=== PATIENT | female | born 1945 | race Caucasian/White ===

== ENCOUNTER 2017-07-30 11:10 | Inpatient (IN) | payer MEDICARE, MEDICAID ==
[~2017-07-30] VITALS: Ht 154.9 cm; Wt 50.0 kg
[~2017-07-30 11:10] MED LIST: AMIT-106 PO; ASPI-611 PO; ATEN-55 PO; BUDE10.22 INH; FLUT16SP20 NS; LEVA15HF4 INH; LISI-600 PO; LOVA20TA2 PO; OMEP-50 PO; PARO20TA6 PO; TRAZ-143 PO
[2017-07-30] MEDS ORDERED: normal saline 1000ML IV soln IV ONE (11:30)
[2017-07-30 12:12] LABS: BASOPHILS # (AUTO) 0.1 X10'3 (0-0.2); BASOPHILS % (AUTO) 0.4 % (0-1); EOSINOPHILS # (AUTO) 0.2 X10'3 (0-0.9); EOSINOPHILS % (AUTO) 1.3 % (0-6); HEMATOCRIT 29.5 % (35.0-45.0); HEMOGLOBIN 9.7 g/dl (12.0-16.0); LYMPHOCYTES # (AUTO) 1.4 X10'3 (1.1-4.8); LYMPHOCYTES % (AUTO) 7.9 % (21-51); MEAN CORPUSCULAR HGB CONC 32.8 % (33.0-36.5); MEAN CORPUSCULAR VOLUME 88.5 FL (78-98); MEAN PLATELET VOLUME 6.7 FL (7.4-10.4); MONOCYTES # (AUTO) 2.2 X10'3 (0-0.9); MONOCYTES % (AUTO) 12.5 % (2-12); NEUTROPHILS % (AUTO) 77.9 % (42-75); PLATELET COUNT 437 X10'3 (140-440); RED BLOOD COUNT 3.34 X10'6 (4.20-5.60); RED CELL DISTRIBUTION WIDTH 14.4 % (11.5-14.5)
[2017-07-30 12:36] LABS: ALANINE AMINOTRANSFERASE 11 U/L (12-78); ALBUMIN 2.2 G/DL (3.4-5.0); ALBUMIN/GLOBULIN RATIO 0.6 (1.1-1.5); ALKALINE PHOSPHATASE 88 IU/L (46-116); ANION GAP 13 (8-16); ASPARTATE AMINO TRANSFERASE 14 U/L (10-37); BILIRUBIN,TOTAL 0.5 MG/DL (0.1-1.0); BLOOD UREA NITROGEN 28 MG/DL (7-18); BUN/CREATININE RATIO 9.4 (6.6-38.0); CALCIUM 7.8 MG/DL (8.5-10.1); CHLORIDE 89 MMOL/L (99-107); CREATININE 2.97 MG/DL (0.40-0.90); GLUCOSE 87 MG/DL (70-104); POTASSIUM 3.6 MMOL/L (3.5-5.1); SODIUM 125 MMOL/L (135-145); TOTAL CARBON DIOXIDE 22.8 MMOL/L (24-32); TOTAL PROTEIN 6.1 G/DL (6.4-8.2); eGFR 15 ML/MIN
[2017-07-30 12:45] LABS: PLATELET ESTIMATE NORMAL; TOTAL CELLS COUNTED 100
[2017-07-30] MEDS ORDERED: vancomycin 250MG/10ML UD oral solution 10ML BOTTLE PO SCH (12:55)
[2017-07-30 13:16] LABS: CLARITY,URINE SLIGHTLY CLOUDY (Clear); COLOR,URINE AMBER (Yellow); GLUCOSE, URINE 100 mg/dl (Neg); KETONES,URINE NEGATIVE (Neg); LEUKOCYTE ESTERASE ,URINE NEGATIVE (Neg); NITRITES, URINE POSITIVE (Neg); OCCULT BLOOD,URINE NEGATIVE (Neg); PROTEIN,URINE 30 mg/dl (Neg)
[2017-07-30 13:20] LABS: UA COLLECTION TYPE STRAIGHT CATH
[2017-07-30 13:29] LABS: WBC,URINE 0-4 /HPF (0-4)
[2017-07-30] MEDS ORDERED: vancomcyin 250mg capsules PO SCH (13:29)
[2017-07-30 13:30] LABS: BACTERIA,URINE NONE SEEN /HPF (Neg); RBC,URINE NONE SEEN /HPF (0-2); SQUAMOUS EPITHELIAL CELL,UR FEW /LPF (FEW)
[2017-07-30 13:32] LABS: AMORPHOUS URATES 2+
[2017-07-30] MEDS ORDERED: acetaminophen 325mg tablet PO PRN (13:35)
[2017-07-30] MEDS ORDERED: magnesium 4gm in 100ml NS 100 ML IV PRN (13:35)
[2017-07-30] MEDS ORDERED: mag hydrox/Alum hydrox/simeth 30ml oral suspension PO PRN (13:35)
[2017-07-30] MEDS ORDERED: potassium Cl 20 mEq SR tablet PO PRN ×2 (13:35)
[2017-07-30] MEDS ORDERED: magnesium 2GM in 50ml NS 50 ML IV PRN (13:35)
[2017-07-30] MEDS ORDERED: potassium Cl 40MEQ/NS 500ml 500 ML IV PRN ×2 (13:35)
[2017-07-30] MEDS ORDERED: albuterol 2.5 MG/3 ML nebule NEB PRN (14:00)
[2017-07-30] MEDS: vancomcyin 250mg capsules PO SCH ×2 (14:31→21:12)
[2017-07-30] MEDS: potassium Cl 20mEq in NS 1,000 ML IV SCH ×2 (15:24→23:35)
[2017-07-30 15:25] LABS: C DIFF ANTIGEN POSITIVE (NEGATIVE); C DIFF SPECIMEN=DIARRHEA? ACCEPTABLE; C DIFFICILE TOXINS A&B POSITIVE (Neg)
[2017-07-30 15:53] VITALS: BP 111/64
[2017-07-30] MEDS ORDERED: ONDA4TAB11 (16:58)
[2017-07-30 17:49] LABS: ALBUMIN 1.9 G/DL (3.4-5.0); ANION GAP 14 (8-16); BLOOD UREA NITROGEN 28 MG/DL (7-18); BUN/CREATININE RATIO 11.6 (6.6-38.0); CALCIUM 7.2 MG/DL (8.5-10.1); CHLORIDE 94 MMOL/L (99-107); CREATININE 2.41 MG/DL (0.40-0.90); GLUCOSE 70 MG/DL (70-104); POTASSIUM 3.5 MMOL/L (3.5-5.1); SODIUM 130 MMOL/L (135-145); TOTAL CARBON DIOXIDE 21.7 MMOL/L (24-32); eGFR 20 ML/MIN
[2017-07-30 18:00] VITALS: BP 94/47
[2017-07-30 20:43] VITALS: BP_SYST 100; BP_SYST 101; BP_SYST 90; BP_DIAS 44; BP_DIAS 59; BP_DIAS 62
[2017-07-30] MEDS: traZODone 50mg tablet PO SCH (21:12)
[2017-07-30] MEDS: heparin, porcine 5000 units/ml vial SQ SCH (21:13)
[2017-07-30 22:00] VITALS: BP 100/47
[2017-07-31] MEDS: vancomcyin 250mg capsules PO SCH ×4 (01:39→19:59)
[2017-07-31 05:50] LABS: BASOPHILS % (AUTO) 0 % (0-1); EOSINOPHILS # (AUTO) 0.4 X10'3 (0-0.9); EOSINOPHILS % (AUTO) 2.1 % (0-6); HEMATOCRIT 24.6 % (35.0-45.0); HEMOGLOBIN 8.1 g/dl (12.0-16.0); LYMPHOCYTES # (AUTO) 1.3 X10'3 (1.1-4.8); LYMPHOCYTES % (AUTO) 7.3 % (21-51); MEAN CORPUSCULAR HEMOGLOBIN 28.9 PG (27.0-31.0); MEAN CORPUSCULAR VOLUME 87.6 FL (78-98); MEAN PLATELET VOLUME 6.7 FL (7.4-10.4); MONOCYTES # (AUTO) 1.6 X10'3 (0-0.9); NEUTROPHILS # (AUTO) 14.8 X10'3 (1.8-7.7); NEUTROPHILS % (AUTO) 81.6 % (42-75); PLATELET COUNT 465 X10'3 (140-440); RED BLOOD COUNT 2.81 X10'6 (4.20-5.60); RED CELL DISTRIBUTION WIDTH 14.5 % (11.5-14.5); WHITE BLOOD COUNT 18.1 X10'3 (4.5-11.0)
[2017-07-31 06:16] LABS: ALBUMIN 1.7 G/DL (3.4-5.0); ANION GAP 12 (8-16); BLOOD UREA NITROGEN 26 MG/DL (7-18); BUN/CREATININE RATIO 15.3 (6.6-38.0); CHLORIDE 99 MMOL/L (99-107); GLUCOSE 71 MG/DL (70-104); MAGNESIUM 1.2 MG/DL (1.5-2.4); POTASSIUM 4.2 MMOL/L (3.5-5.1); SODIUM 132 MMOL/L (135-145); TOTAL CARBON DIOXIDE 20.8 MMOL/L (24-32); eGFR 29 ML/MIN
[2017-07-31 06:54] VITALS: BP 94/54
[2017-07-31] MEDS: fluticasone nasal spray 16GM bottle NS SCH (07:49)
[2017-07-31] MEDS: amitriptyline 25mg tablet PO SCH (07:50)
[2017-07-31] MEDS: PARoxetine 20mg tablet PO SCH (07:50)
[2017-07-31] MEDS: atorvastatin 10mg tablet PO SCH (07:51)
[2017-07-31] MEDS: aspirin 81mg tab.chew PO SCH (07:51)
[2017-07-31] MEDS: pantoprazole 40mg Tablet.DR PO SCH (07:51)
[2017-07-31] MEDS: heparin, porcine 5000 units/ml vial SQ SCH ×2 (07:52→19:59)
[2017-07-31 08:00] VITALS: BP_SYST 106; BP_SYST 116; BP_SYST 123; BP_DIAS 65; BP_DIAS 66; BP_DIAS 70
[2017-07-31] MEDS: K and/or MAG REPLACEMENT MC SCH (08:00)
[2017-07-31 10:00] VITALS: BP 103/57
[2017-07-31 10:18] LABS: PLATELET ESTIMATE NORMAL; TOTAL CELLS COUNTED 100
[2017-07-31 10:19] LABS: TOXIC GRANULATION 2+
[2017-07-31 10:21] LABS: SCHISTOCYTES FEW
[2017-07-31 10:23] LABS: BURR CELLS 1+
[2017-07-31] MEDS: potassium Cl 20mEq in NS 1,000 ML IV SCH ×2 (13:00→20:58)
[2017-07-31 18:00] VITALS: BP 110/70
[2017-07-31 20:45] VITALS: BP_SYST 110; BP_SYST 112; BP_SYST 121; BP_DIAS 61; BP_DIAS 64; BP_DIAS 69
[2017-07-31] MEDS: traZODone 50mg tablet PO SCH (20:58)
[2017-07-31 22:00] VITALS: BP 105/62
[2017-08-01] VITALS (7 sets, daily range): BP systolic 112–142; BP diastolic 67–84
[2017-08-01] MEDS: vancomcyin 250mg capsules PO SCH ×4 (01:53→21:45)
[2017-08-01] MEDS: albuterol 2.5 MG/3 ML nebule NEB SCH ×2 (03:00→07:48)
[2017-08-01] MEDS: BUDESONIDE 0.25 MG/2 ML AMPUL.NEB IH SCH ×3 (03:01→20:06)
[2017-08-01] MEDS: potassium Cl 20mEq in NS 1,000 ML IV SCH (05:05)
[2017-08-01 06:03] LABS: BASOPHILS % (AUTO) 0.3 % (0-1); EOSINOPHILS % (AUTO) 2.8 % (0-6); HEMATOCRIT 24.7 % (35.0-45.0); HEMOGLOBIN 8.2 g/dl (12.0-16.0); LYMPHOCYTES % (AUTO) 12.6 % (21-51); MEAN CORPUSCULAR HEMOGLOBIN 28.8 PG (27.0-31.0); MEAN CORPUSCULAR HGB CONC 33.3 % (33.0-36.5); MEAN CORPUSCULAR VOLUME 86.5 FL (78-98); MEAN PLATELET VOLUME 6.3 FL (7.4-10.4); MONOCYTES % (AUTO) 8.9 % (2-12); NEUTROPHILS % (AUTO) 75.4 % (42-75); PLATELET COUNT 498 X10'3 (140-440); RED BLOOD COUNT 2.85 X10'6 (4.20-5.60); RED CELL DISTRIBUTION WIDTH 14.6 % (11.5-14.5); WHITE BLOOD COUNT 12.6 X10'3 (4.5-11.0)
[2017-08-01 06:04] LABS: EOSINOPHILS # (AUTO) 0.3 X10'3 (0-0.9); LYMPHOCYTES # (AUTO) 1.6 X10'3 (1.1-4.8); MONOCYTES # (AUTO) 1.1 X10'3 (0-0.9); NEUTROPHILS # (AUTO) 9.5 X10'3 (1.8-7.7)
[2017-08-01 06:24] LABS: ALBUMIN 1.7 G/DL (3.4-5.0); ANION GAP 8 (8-16); BLOOD UREA NITROGEN 12 MG/DL (7-18); BUN/CREATININE RATIO 12.4 (6.6-38.0); CALCIUM 7.4 MG/DL (8.5-10.1); CHLORIDE 105 MMOL/L (99-107); CREATININE 0.97 MG/DL (0.40-0.90); GLUCOSE 90 MG/DL (70-104); MAGNESIUM 1.2 MG/DL (1.5-2.4); POTASSIUM 4.6 MMOL/L (3.5-5.1); SODIUM 135 MMOL/L (135-145); TOTAL CARBON DIOXIDE 22.4 MMOL/L (24-32); eGFR 56 ML/MIN
[2017-08-01] MEDS: K and/or MAG REPLACEMENT MC SCH (08:00)
[2017-08-01] MEDS: atorvastatin 10mg tablet PO SCH (08:51)
[2017-08-01] MEDS: magnesium Cl slow-release 64mg tablet PO PRN ×2 (08:51→21:45)
[2017-08-01] MEDS: pantoprazole 40mg Tablet.DR PO SCH (08:51)
[2017-08-01] MEDS: aspirin 81mg tab.chew PO SCH (08:52)
[2017-08-01] MEDS: PARoxetine 20mg tablet PO SCH (08:52)
[2017-08-01] MEDS: amitriptyline 25mg tablet PO SCH (08:52)
[2017-08-01] MEDS: fluticasone nasal spray 16GM bottle NS SCH (09:10)
[2017-08-01] MEDS: heparin, porcine 5000 units/ml vial SQ SCH ×2 (09:13→21:45)
[2017-08-01] MEDS: ondansetron/PF 4mg/2ml inj IV PRN (09:20)
[2017-08-01] MEDS ORDERED: famotidine 10mg tablet PO SCH (10:55)
[2017-08-01] MEDS: albuterol 2.5 MG/3 ML nebule NEB PRN (11:33)
[2017-08-01] MEDS: normal saline 1000ml 1,000 ML IV SCH (11:45)
[2017-08-01] MEDS: LACTOSE-FREE FOOD 237ML (BOOST) PO SCH ×2 (13:00→18:00)
[2017-08-01] MEDS: mag hydrox/Alum hydrox/simeth 30ml oral suspension PO SCH ×2 (15:15→21:45)
[2017-08-01] MEDS: traZODone 50mg tablet PO SCH (21:45)
[2017-08-01] MEDS: famotidine 20mg tablet PO SCH (21:45)
[2017-08-02] MEDS: normal saline 1000ml 1,000 ML IV SCH ×2 (00:20→13:26)
[2017-08-02] MEDS: vancomcyin 250mg capsules PO SCH ×4 (02:07→20:59)
[2017-08-02 06:00] VITALS: BP 123/80
[2017-08-02 06:16] LABS: BASOPHILS % (AUTO) 0.5 % (0-1); EOSINOPHILS # (AUTO) 0.3 X10'3 (0-0.9); EOSINOPHILS % (AUTO) 3.1 % (0-6); HEMATOCRIT 26.7 % (35.0-45.0); HEMOGLOBIN 8.7 g/dl (12.0-16.0); LYMPHOCYTES # (AUTO) 1.9 X10'3 (1.1-4.8); MEAN CORPUSCULAR HEMOGLOBIN 29.2 PG (27.0-31.0); MEAN CORPUSCULAR HGB CONC 32.8 % (33.0-36.5); MEAN CORPUSCULAR VOLUME 89.1 FL (78-98); MEAN PLATELET VOLUME 6.8 FL (7.4-10.4); MONOCYTES # (AUTO) 0.8 X10'3 (0-0.9); MONOCYTES % (AUTO) 10.2 % (2-12); NEUTROPHILS # (AUTO) 5.1 X10'3 (1.8-7.7); NEUTROPHILS % (AUTO) 62.2 % (42-75); PLATELET COUNT 571 X10'3 (140-440); RED BLOOD COUNT 2.99 X10'6 (4.20-5.60); RED CELL DISTRIBUTION WIDTH 13.8 % (11.5-14.5); WHITE BLOOD COUNT 8.1 X10'3 (4.5-11.0)
[2017-08-02 06:17] LABS: ALBUMIN 1.8 G/DL (3.4-5.0); ANION GAP 6 (8-16); BLOOD UREA NITROGEN 5 MG/DL (7-18); BUN/CREATININE RATIO 5.4 (6.6-38.0); CALCIUM 7.7 MG/DL (8.5-10.1); CHLORIDE 106 MMOL/L (99-107); CREATININE 0.93 MG/DL (0.40-0.90); GLUCOSE 76 MG/DL (70-104); MAGNESIUM 1.3 MG/DL (1.5-2.4); POTASSIUM 4.2 MMOL/L (3.5-5.1); SODIUM 137 MMOL/L (135-145); TOTAL CARBON DIOXIDE 24.7 MMOL/L (24-32); eGFR 59 ML/MIN
[2017-08-02] MEDS: HYDROcodone/acetaminophen 5mg/325mg tablet PO PRN ×3 (06:42→20:58)
[2017-08-02 08:00] VITALS: BP_SYST 104; BP_SYST 121; BP_SYST 122; BP_DIAS 69; BP_DIAS 74; BP_DIAS 82
[2017-08-02] MEDS: fluticasone nasal spray 16GM bottle NS SCH (08:06)
[2017-08-02] MEDS: magnesium Cl slow-release 64mg tablet PO PRN ×2 (08:07→20:59)
[2017-08-02] MEDS: heparin, porcine 5000 units/ml vial SQ SCH ×2 (08:07→20:58)
[2017-08-02] MEDS: aspirin 81mg tab.chew PO SCH (08:07)
[2017-08-02] MEDS: atorvastatin 10mg tablet PO SCH (08:08)
[2017-08-02] MEDS: famotidine 20mg tablet PO SCH ×2 (08:08→20:59)
[2017-08-02] MEDS: PARoxetine 20mg tablet PO SCH (08:08)
[2017-08-02] MEDS: LACTOSE-FREE FOOD 237ML (BOOST) PO SCH ×3 (08:08→21:00)
[2017-08-02] MEDS: mag hydrox/Alum hydrox/simeth 30ml oral suspension PO SCH ×3 (08:08→20:57)
[2017-08-02] MEDS: amitriptyline 25mg tablet PO SCH (08:08)
[2017-08-02] MEDS: K and/or MAG REPLACEMENT MC SCH (08:15)
[2017-08-02] MEDS: albuterol 2.5 MG/3 ML nebule NEB PRN (09:31)
[2017-08-02] MEDS: BUDESONIDE 0.25 MG/2 ML AMPUL.NEB IH SCH ×2 (09:32→21:24)
[2017-08-02 10:00] VITALS: BP 113/80
[2017-08-02] MEDS: chloestyramine/aspartame 4gm packet PO SCH ×3 (13:00→21:00)
[2017-08-02 18:00] VITALS: BP 112/62
[2017-08-02 20:00] VITALS: BP_SYST 123; BP_SYST 129; BP_DIAS 73; BP_DIAS 76; BP_DIAS 83
[2017-08-02] MEDS ORDERED: potassium Cl 20 mEq SR tablet PO PRN ×2 (20:45)
[2017-08-02] MEDS ORDERED: magnesium 4gm in 100ml NS 100 ML IV PRN (20:45)
[2017-08-02] MEDS ORDERED: magnesium/D5W IVPB 100 ML IV PRN (20:45)
[2017-08-02] MEDS ORDERED: potassium Cl 40MEQ/NS 500ml 500 ML IV PRN ×2 (20:45)
[2017-08-02] MEDS: lactobacillus rhamnosus 10,000 MMU CELLS/CAPSULE PO SCH (20:59)
[2017-08-02] MEDS: traZODone 50mg tablet PO SCH (21:00)
[2017-08-02 22:00] VITALS: BP 129/76
[2017-08-03] MEDS: vancomcyin 250mg capsules PO SCH ×4 (02:30→22:23)
[2017-08-03] MEDS: normal saline 1000ml 1,000 ML IV SCH ×2 (02:56→16:08)
[2017-08-03] MEDS: HYDROcodone/acetaminophen 5mg/325mg tablet PO PRN ×3 (03:05→22:24)
[2017-08-03 06:00] VITALS: BP 142/71
[2017-08-03 06:23] LABS: ANION GAP 6 (8-16); BLOOD UREA NITROGEN 7 MG/DL (7-18); CHLORIDE 104 MMOL/L (99-107); CREATININE 0.88 MG/DL (0.40-0.90); GLUCOSE 73 MG/DL (70-104); MAGNESIUM 1.2 MG/DL (1.5-2.4); POTASSIUM 4.4 MMOL/L (3.5-5.1); SODIUM 137 MMOL/L (135-145); TOTAL CARBON DIOXIDE 27.2 MMOL/L (24-32); eGFR 63 ML/MIN
[2017-08-03 08:00] VITALS: BP_SYST 135; BP_SYST 139; BP_SYST 141; BP_DIAS 72; BP_DIAS 78; BP_DIAS 79
[2017-08-03] MEDS: chloestyramine/aspartame 4gm packet PO SCH ×3 (08:00→21:00)
[2017-08-03] MEDS: K and/or MAG REPLACEMENT MC SCH (08:00)
[2017-08-03] MEDS: BUDESONIDE 0.25 MG/2 ML AMPUL.NEB IH SCH ×2 (08:00→20:00)
[2017-08-03] MEDS: magnesium Cl slow-release 64mg tablet PO PRN ×2 (08:58→22:22)
[2017-08-03] MEDS: fluticasone nasal spray 16GM bottle NS SCH (08:59)
[2017-08-03] MEDS: LACTOSE-FREE FOOD 237ML (BOOST) PO SCH ×3 (08:59→18:00)
[2017-08-03] MEDS: aspirin 81mg tab.chew PO SCH (08:59)
[2017-08-03] MEDS: lactobacillus rhamnosus 10,000 MMU CELLS/CAPSULE PO SCH ×2 (09:00→22:23)
[2017-08-03] MEDS: atorvastatin 10mg tablet PO SCH (09:00)
[2017-08-03] MEDS: amitriptyline 25mg tablet PO SCH (09:00)
[2017-08-03] MEDS: famotidine 20mg tablet PO SCH ×2 (09:01→22:22)
[2017-08-03] MEDS: PARoxetine 20mg tablet PO SCH (09:01)
[2017-08-03] MEDS: mag hydrox/Alum hydrox/simeth 30ml oral suspension PO SCH ×3 (09:01→22:22)
[2017-08-03] MEDS: heparin, porcine 5000 units/ml vial SQ SCH ×2 (09:04→22:22)
[2017-08-03 10:00] VITALS: BP 141/79
[2017-08-03] MEDS: albuterol 2.5 MG/3 ML nebule NEB PRN (12:20)
[2017-08-03 18:00] VITALS: BP 132/69
[2017-08-03] MEDS: ondansetron/PF 4mg/2ml inj IV PRN (19:39)
[2017-08-03 20:00] VITALS: BP_SYST 117; BP_SYST 123; BP_SYST 131; BP_DIAS 73; BP_DIAS 75; BP_DIAS 77
[2017-08-03 22:00] VITALS: BP 139/91
[2017-08-03] MEDS: traZODone 50mg tablet PO SCH (22:23)
[2017-08-04] VITALS (7 sets, daily range): BP systolic 113–140; BP diastolic 69–87
[2017-08-04] MEDS: vancomcyin 250mg capsules PO SCH ×4 (02:02→20:12)
[2017-08-04] MEDS: normal saline 1000ml 1,000 ML IV SCH ×2 (05:33→20:13)
[2017-08-04 05:37] LABS: ALBUMIN 1.9 G/DL (3.4-5.0); ANION GAP 6 (8-16); BLOOD UREA NITROGEN 5 MG/DL (7-18); BUN/CREATININE RATIO 6.2 (6.6-38.0); CALCIUM 7.7 MG/DL (8.5-10.1); CHLORIDE 103 MMOL/L (99-107); CREATININE 0.81 MG/DL (0.40-0.90); GLUCOSE 77 MG/DL (70-104); MAGNESIUM 1.6 MG/DL (1.5-2.4); POTASSIUM 4.2 MMOL/L (3.5-5.1); SODIUM 138 MMOL/L (135-145); TOTAL CARBON DIOXIDE 28.8 MMOL/L (24-32); eGFR 69 ML/MIN
[2017-08-04] MEDS: HYDROcodone/acetaminophen 5mg/325mg tablet PO PRN ×2 (05:38→19:18)
[2017-08-04] MEDS: K and/or MAG REPLACEMENT MC SCH (07:29)
[2017-08-04] MEDS: amitriptyline 25mg tablet PO SCH (07:43)
[2017-08-04] MEDS: lactobacillus rhamnosus 10,000 MMU CELLS/CAPSULE PO SCH ×2 (07:44→20:12)
[2017-08-04] MEDS: PARoxetine 20mg tablet PO SCH (07:44)
[2017-08-04] MEDS: aspirin 81mg tab.chew PO SCH (07:45)
[2017-08-04] MEDS: atorvastatin 10mg tablet PO SCH (07:45)
[2017-08-04] MEDS: famotidine 20mg tablet PO SCH ×2 (07:45→20:13)
[2017-08-04] MEDS: mag hydrox/Alum hydrox/simeth 30ml oral suspension PO SCH ×3 (07:46→20:12)
[2017-08-04] MEDS: fluticasone nasal spray 16GM bottle NS SCH (07:47)
[2017-08-04] MEDS: chloestyramine/aspartame 4gm packet PO SCH ×3 (07:47→19:22)
[2017-08-04] MEDS: heparin, porcine 5000 units/ml vial SQ SCH ×2 (07:48→20:13)
[2017-08-04] MEDS: LACTOSE-FREE FOOD 237ML (BOOST) PO SCH ×3 (07:49→18:00)
[2017-08-04] MEDS: BUDESONIDE 0.25 MG/2 ML AMPUL.NEB IH SCH ×2 (09:08→21:20)
[2017-08-04] MEDS: ondansetron/PF 4mg/2ml inj IV PRN (15:31)
[2017-08-04] MEDS: traZODone 50mg tablet PO SCH (20:12)
[2017-08-05] MEDS: vancomcyin 250mg capsules PO SCH ×4 (02:29→20:29)
[2017-08-05 05:00] VITALS: BP 139/78
[2017-08-05] MEDS: HYDROcodone/acetaminophen 5mg/325mg tablet PO PRN ×2 (05:14→20:30)
[2017-08-05 05:50] LABS: BASOPHILS # (AUTO) 0.1 X10'3 (0-0.2); BASOPHILS % (AUTO) 1.3 % (0-1); EOSINOPHILS # (AUTO) 0.3 X10'3 (0-0.9); EOSINOPHILS % (AUTO) 4.3 % (0-6); HEMATOCRIT 24.7 % (35.0-45.0); LYMPHOCYTES # (AUTO) 1.9 X10'3 (1.1-4.8); LYMPHOCYTES % (AUTO) 26.1 % (21-51); MEAN CORPUSCULAR HEMOGLOBIN 28.7 PG (27.0-31.0); MEAN CORPUSCULAR HGB CONC 32.5 % (33.0-36.5); MEAN CORPUSCULAR VOLUME 88.5 FL (78-98); MEAN PLATELET VOLUME 6.4 FL (7.4-10.4); MONOCYTES # (AUTO) 0.7 X10'3 (0-0.9); MONOCYTES % (AUTO) 9.2 % (2-12); NEUTROPHILS # (AUTO) 4.3 X10'3 (1.8-7.7); NEUTROPHILS % (AUTO) 59.1 % (42-75); PLATELET COUNT 559 X10'3 (140-440); WHITE BLOOD COUNT 7.3 X10'3 (4.5-11.0)
[2017-08-05 06:09] LABS: ALANINE AMINOTRANSFERASE 7 U/L (12-78); ALBUMIN 1.7 G/DL (3.4-5.0); ALBUMIN/GLOBULIN RATIO 0.5 (1.1-1.5); ALKALINE PHOSPHATASE 69 IU/L (46-116); ANION GAP 4 (8-16); ASPARTATE AMINO TRANSFERASE 9 U/L (10-37); BILIRUBIN,TOTAL 0.1 MG/DL (0.1-1.0); BLOOD UREA NITROGEN 6 MG/DL (7-18); BUN/CREATININE RATIO 8.3 (6.6-38.0); CALCIUM 7.9 MG/DL (8.5-10.1); CHLORIDE 103 MMOL/L (99-107); CREATININE 0.72 MG/DL (0.40-0.90); GLUCOSE 78 MG/DL (70-104); MAGNESIUM 1.3 MG/DL (1.5-2.4); POTASSIUM 4.1 MMOL/L (3.5-5.1); SODIUM 137 MMOL/L (135-145); TOTAL CARBON DIOXIDE 30.2 MMOL/L (24-32); TOTAL PROTEIN 4.9 G/DL (6.4-8.2); eGFR 79 ML/MIN
[2017-08-05] MEDS: K and/or MAG REPLACEMENT MC SCH (06:50)
[2017-08-05] MEDS: BUDESONIDE 0.25 MG/2 ML AMPUL.NEB IH SCH ×2 (07:55→20:00)
[2017-08-05 08:00] VITALS: BP_SYST 128; BP_SYST 133; BP_DIAS 72; BP_DIAS 74; BP_DIAS 81
[2017-08-05] MEDS: LACTOSE-FREE FOOD 237ML (BOOST) PO SCH ×3 (08:00→18:00)
[2017-08-05] MEDS: mag hydrox/Alum hydrox/simeth 30ml oral suspension PO SCH ×3 (09:12→20:28)
[2017-08-05] MEDS: lactobacillus rhamnosus 10,000 MMU CELLS/CAPSULE PO SCH ×2 (09:13→20:30)
[2017-08-05] MEDS: aspirin 81mg tab.chew PO SCH (09:14)
[2017-08-05] MEDS: famotidine 20mg tablet PO SCH (09:14)
[2017-08-05] MEDS: atorvastatin 10mg tablet PO SCH (09:14)
[2017-08-05] MEDS: PARoxetine 20mg tablet PO SCH (09:14)
[2017-08-05] MEDS: heparin, porcine 5000 units/ml vial SQ SCH ×2 (09:15→20:31)
[2017-08-05] MEDS: amitriptyline 25mg tablet PO SCH (09:20)
[2017-08-05] MEDS: chloestyramine/aspartame 4gm packet PO SCH ×3 (09:20→20:32)
[2017-08-05] MEDS: normal saline 1000ml 1,000 ML IV SCH ×2 (09:20→20:35)
[2017-08-05] MEDS: fluticasone nasal spray 16GM bottle NS SCH (09:20)
[2017-08-05 10:00] VITALS: BP 128/74
[2017-08-05] MEDS: ondansetron/PF 4mg/2ml inj IV PRN (11:44)
[2017-08-05] MEDS: magnesium Cl slow-release 64mg tablet PO PRN (13:24)
[2017-08-05 17:00] VITALS: BP 137/67
[2017-08-05] MEDS: albuterol 2.5 MG/3 ML nebule NEB PRN (17:11)
[2017-08-05] MEDS: traZODone 50mg tablet PO SCH (20:30)
[2017-08-05 22:00] VITALS: BP_SYST 112; BP_SYST 120; BP_SYST 129; BP_DIAS 60; BP_DIAS 64; BP_DIAS 72
[2017-08-06] MEDS: vancomcyin 250mg capsules PO SCH ×4 (02:46→20:02)
[2017-08-06 06:00] VITALS: BP 139/69
[2017-08-06 06:09] LABS: MAGNESIUM 1.4 MG/DL (1.5-2.4); POTASSIUM 4.8 MMOL/L (3.5-5.1)
[2017-08-06] MEDS ORDERED: pantoprazole 40mg Tablet.DR PO SCH (07:30)
[2017-08-06] MEDS: chloestyramine/aspartame 4gm packet PO SCH ×3 (07:58→19:56)
[2017-08-06] MEDS: fluticasone nasal spray 16GM bottle NS SCH (07:58)
[2017-08-06] MEDS: mag hydrox/Alum hydrox/simeth 30ml oral suspension PO SCH ×3 (07:59→20:01)
[2017-08-06] MEDS: aspirin 81mg tab.chew PO SCH (08:01)
[2017-08-06] MEDS: LACTOSE-FREE FOOD 237ML (BOOST) PO SCH ×3 (08:01→18:10)
[2017-08-06] MEDS: lactobacillus rhamnosus 10,000 MMU CELLS/CAPSULE PO SCH ×2 (08:01→20:02)
[2017-08-06] MEDS: PARoxetine 20mg tablet PO SCH (08:02)
[2017-08-06] MEDS: atorvastatin 10mg tablet PO SCH (08:02)
[2017-08-06] MEDS: heparin, porcine 5000 units/ml vial SQ SCH ×2 (08:03→20:01)
[2017-08-06] MEDS: amitriptyline 25mg tablet PO SCH (08:03)
[2017-08-06] MEDS: K and/or MAG REPLACEMENT MC SCH (08:10)
[2017-08-06] MEDS: albuterol 2.5 MG/3 ML nebule NEB PRN (09:51)
[2017-08-06] MEDS: BUDESONIDE 0.25 MG/2 ML AMPUL.NEB IH SCH ×2 (09:52→20:32)
[2017-08-06 10:00] VITALS: BP 121/64
[2017-08-06] MEDS ORDERED: potassium Cl 20 mEq SR tablet PO PRN ×2 (11:05)
[2017-08-06] MEDS ORDERED: potassium Cl 40MEQ/NS 500ml 500 ML IV PRN ×2 (11:05)
[2017-08-06] MEDS ORDERED: magnesium 4gm in 100ml NS 100 ML IV PRN (11:05)
[2017-08-06] MEDS ORDERED: magnesium/D5W IVPB 100 ML IV PRN (11:05)
[2017-08-06] MEDS: magnesium Cl slow-release 64mg tablet PO PRN ×2 (13:08→20:02)
[2017-08-06 18:00] VITALS: BP 101/63
[2017-08-06] MEDS: traZODone 50mg tablet PO SCH (20:02)
[2017-08-06] MEDS: LOVASTATIN 20 MG PO SCH (20:03)
[2017-08-06] MEDS: OMEPRAZOLE 20MG CAPSULE PO SCH (20:03)
[2017-08-06] MEDS: HYDROcodone/acetaminophen 5mg/325mg tablet PO PRN (20:05)
[2017-08-06 22:00] VITALS: BP 123/62
[2017-08-07] MEDS: vancomcyin 250mg capsules PO SCH ×4 (01:30→21:01)
[2017-08-07 05:00] VITALS: BP 128/65
[2017-08-07 05:35] LABS: BASOPHILS % (AUTO) 0.4 % (0-1); EOSINOPHILS # (AUTO) 0.2 X10'3 (0-0.9); EOSINOPHILS % (AUTO) 2.8 % (0-6); HEMATOCRIT 24.4 % (35.0-45.0); LYMPHOCYTES # (AUTO) 2.2 X10'3 (1.1-4.8); MEAN CORPUSCULAR HEMOGLOBIN 28.7 PG (27.0-31.0); MEAN CORPUSCULAR HGB CONC 32.7 % (33.0-36.5); MEAN CORPUSCULAR VOLUME 87.6 FL (78-98); MEAN PLATELET VOLUME 5.9 FL (7.4-10.4); MONOCYTES # (AUTO) 0.7 X10'3 (0-0.9); MONOCYTES % (AUTO) 9.1 % (2-12); NEUTROPHILS # (AUTO) 4.5 X10'3 (1.8-7.7); NEUTROPHILS % (AUTO) 58.7 % (42-75); PLATELET COUNT 549 X10'3 (140-440); RED BLOOD COUNT 2.79 X10'6 (4.20-5.60); RED CELL DISTRIBUTION WIDTH 15.2 % (11.5-14.5); WHITE BLOOD COUNT 7.6 X10'3 (4.5-11.0)
[2017-08-07] MEDS: HYDROcodone/acetaminophen 5mg/325mg tablet PO PRN ×2 (05:40→21:01)
[2017-08-07 05:54] LABS: ALANINE AMINOTRANSFERASE 8 U/L (12-78); ALBUMIN 1.8 G/DL (3.4-5.0); ALBUMIN/GLOBULIN RATIO 0.6 (1.1-1.5); ALKALINE PHOSPHATASE 62 IU/L (46-116); ANION GAP 3 (8-16); ASPARTATE AMINO TRANSFERASE 13 U/L (10-37); BILIRUBIN,TOTAL 0.2 MG/DL (0.1-1.0); BLOOD UREA NITROGEN 5 MG/DL (7-18); CHLORIDE 104 MMOL/L (99-107); CREATININE 0.83 MG/DL (0.40-0.90); GLUCOSE 81 MG/DL (70-104); MAGNESIUM 1.6 MG/DL (1.5-2.4); POTASSIUM 4.3 MMOL/L (3.5-5.1); SODIUM 138 MMOL/L (135-145); TOTAL CARBON DIOXIDE 30.6 MMOL/L (24-32); eGFR 67 ML/MIN
[2017-08-07 06:04] LABS: CALCIUM 8.3 MG/DL (8.5-10.1)
[2017-08-07] MEDS: K and/or MAG REPLACEMENT MC SCH (07:56)
[2017-08-07] MEDS: BUDESONIDE 0.25 MG/2 ML AMPUL.NEB IH SCH ×2 (08:00→20:24)
[2017-08-07] MEDS: LOVASTATIN 20 MG PO SCH ×2 (08:00→21:03)
[2017-08-07] MEDS: chloestyramine/aspartame 4gm packet PO SCH ×3 (08:00→21:00)
[2017-08-07] MEDS: mag hydrox/Alum hydrox/simeth 30ml oral suspension PO SCH ×3 (08:34→21:03)
[2017-08-07] MEDS: PARoxetine 20mg tablet PO SCH (08:34)
[2017-08-07] MEDS: aspirin 81mg tab.chew PO SCH (08:34)
[2017-08-07] MEDS: amitriptyline 25mg tablet PO SCH (08:34)
[2017-08-07] MEDS: lactobacillus rhamnosus 10,000 MMU CELLS/CAPSULE PO SCH ×2 (08:34→21:01)
[2017-08-07] MEDS: heparin, porcine 5000 units/ml vial SQ SCH ×2 (08:35→21:04)
[2017-08-07] MEDS: fluticasone nasal spray 16GM bottle NS SCH (08:41)
[2017-08-07] MEDS: LACTOSE-FREE FOOD 237ML (BOOST) PO SCH ×3 (08:41→18:00)
[2017-08-07] MEDS: OMEPRAZOLE 20MG CAPSULE PO SCH ×2 (08:41→21:02)
[2017-08-07] MEDS: albuterol 2.5 MG/3 ML nebule NEB PRN ×2 (09:31→17:53)
[2017-08-07 10:00] VITALS: BP 119/62
[2017-08-07] MEDS: metroNIDAZOLE-Flagyl 500mg/NS 100 ML IV SCH ×2 (16:00→23:42)
[2017-08-07 18:00] VITALS: BP 142/76
[2017-08-07] MEDS: traZODone 50mg tablet PO SCH (21:02)
[2017-08-07 21:30] VITALS: BP 143/82
[2017-08-08] MEDS: vancomcyin 250mg capsules PO SCH ×4 (03:00→20:54)
[2017-08-08 05:46] LABS: BASOPHILS # (AUTO) 0.1 X10'3 (0-0.2); BASOPHILS % (AUTO) 0.4 % (0-1); EOSINOPHILS # (AUTO) 0.2 X10'3 (0-0.9); EOSINOPHILS % (AUTO) 1.7 % (0-6); HEMATOCRIT 25.7 % (35.0-45.0); HEMOGLOBIN 8.4 g/dl (12.0-16.0); LYMPHOCYTES # (AUTO) 2.2 X10'3 (1.1-4.8); LYMPHOCYTES % (AUTO) 15.4 % (21-51); MEAN CORPUSCULAR HEMOGLOBIN 28.7 PG (27.0-31.0); MEAN CORPUSCULAR HGB CONC 32.9 % (33.0-36.5); MEAN CORPUSCULAR VOLUME 87.1 FL (78-98); MEAN PLATELET VOLUME 6.3 FL (7.4-10.4); MONOCYTES # (AUTO) 0.9 X10'3 (0-0.9); MONOCYTES % (AUTO) 6.3 % (2-12); NEUTROPHILS # (AUTO) 10.6 X10'3 (1.8-7.7); NEUTROPHILS % (AUTO) 76.2 % (42-75); PLATELET COUNT 604 X10'3 (140-440); RED BLOOD COUNT 2.95 X10'6 (4.20-5.60)
[2017-08-08 06:00] VITALS: BP 132/72
[2017-08-08 06:00] LABS: ALANINE AMINOTRANSFERASE 10 U/L (12-78); ALBUMIN 2.1 G/DL (3.4-5.0); ALBUMIN/GLOBULIN RATIO 0.6 (1.1-1.5); ALKALINE PHOSPHATASE 64 IU/L (46-116); ANION GAP 3 (8-16); ASPARTATE AMINO TRANSFERASE 13 U/L (10-37); BILIRUBIN,TOTAL 0.2 MG/DL (0.1-1.0); BLOOD UREA NITROGEN 8 MG/DL (7-18); BUN/CREATININE RATIO 9.6 (6.6-38.0); CALCIUM 8.4 MG/DL (8.5-10.1); CHLORIDE 103 MMOL/L (99-107); CREATININE 0.83 MG/DL (0.40-0.90); GLUCOSE 79 MG/DL (70-104); MAGNESIUM 1.6 MG/DL (1.5-2.4); POTASSIUM 3.9 MMOL/L (3.5-5.1); SODIUM 137 MMOL/L (135-145); TOTAL PROTEIN 5.6 G/DL (6.4-8.2); eGFR 67 ML/MIN
[2017-08-08] MEDS: mag hydrox/Alum hydrox/simeth 30ml oral suspension PO SCH ×3 (07:56→20:54)
[2017-08-08] MEDS: PARoxetine 20mg tablet PO SCH (07:56)
[2017-08-08] MEDS: amitriptyline 25mg tablet PO SCH (07:56)
[2017-08-08] MEDS: aspirin 81mg tab.chew PO SCH (07:56)
[2017-08-08] MEDS: lactobacillus rhamnosus 10,000 MMU CELLS/CAPSULE PO SCH ×2 (07:56→20:53)
[2017-08-08] MEDS: metroNIDAZOLE-Flagyl 500mg/NS 100 ML IV SCH ×3 (07:57→23:55)
[2017-08-08] MEDS: heparin, porcine 5000 units/ml vial SQ SCH ×2 (07:57→20:55)
[2017-08-08] MEDS: chloestyramine/aspartame 4gm packet PO SCH ×3 (07:57→21:46)
[2017-08-08] MEDS: LACTOSE-FREE FOOD 237ML (BOOST) PO SCH ×3 (07:57→18:00)
[2017-08-08] MEDS: BUDESONIDE 0.25 MG/2 ML AMPUL.NEB IH SCH ×2 (08:00→19:30)
[2017-08-08] MEDS: OMEPRAZOLE 20MG CAPSULE PO SCH ×2 (08:05→20:53)
[2017-08-08] MEDS: fluticasone nasal spray 16GM bottle NS SCH (08:09)
[2017-08-08] MEDS: K and/or MAG REPLACEMENT MC SCH (08:10)
[2017-08-08 10:19] VITALS: BP 135/69
[2017-08-08] MEDS: HYDROcodone/acetaminophen 5mg/325mg tablet PO PRN ×2 (12:54→20:54)
[2017-08-08] MEDS: albuterol 2.5 MG/3 ML nebule NEB PRN ×2 (14:07→19:30)
[2017-08-08 18:00] VITALS: BP 128/75
[2017-08-08] MEDS: LOVASTATIN 20 MG PO SCH (20:52)
[2017-08-08] MEDS: traZODone 50mg tablet PO SCH (20:53)
[2017-08-08 22:00] VITALS: BP 109/59
[2017-08-09] MEDS: vancomcyin 250mg capsules PO SCH ×4 (01:40→20:20)
[2017-08-09] MEDS: HYDROcodone/acetaminophen 5mg/325mg tablet PO PRN ×2 (01:41→20:41)
[2017-08-09 05:13] LABS: BASOPHILS % (AUTO) 0.5 % (0-1); EOSINOPHILS % (AUTO) 0.3 % (0-6); HEMATOCRIT 24.1 % (35.0-45.0); LYMPHOCYTES # (AUTO) 2.5 X10'3 (1.1-4.8); LYMPHOCYTES % (AUTO) 24.4 % (21-51); MEAN CORPUSCULAR HEMOGLOBIN 28.9 PG (27.0-31.0); MEAN CORPUSCULAR VOLUME 87.4 FL (78-98); MONOCYTES # (AUTO) 0.8 X10'3 (0-0.9); MONOCYTES % (AUTO) 7.9 % (2-12); NEUTROPHILS # (AUTO) 6.8 X10'3 (1.8-7.7); NEUTROPHILS % (AUTO) 66.9 % (42-75); PLATELET COUNT 617 X10'3 (140-440); RED BLOOD COUNT 2.76 X10'6 (4.20-5.60); RED CELL DISTRIBUTION WIDTH 15.5 % (11.5-14.5); WHITE BLOOD COUNT 10.1 X10'3 (4.5-11.0)
[2017-08-09] MEDS: ondansetron/PF 4mg/2ml inj IV PRN (05:21)
[2017-08-09 06:16] LABS: ALANINE AMINOTRANSFERASE 8 U/L (12-78); ALBUMIN/GLOBULIN RATIO 0.6 (1.1-1.5); ALKALINE PHOSPHATASE 60 IU/L (46-116); ANION GAP 6 (8-16); ASPARTATE AMINO TRANSFERASE 9 U/L (10-37); BILIRUBIN,TOTAL 0.2 MG/DL (0.1-1.0); BLOOD UREA NITROGEN 8 MG/DL (7-18); BUN/CREATININE RATIO 8.1 (6.6-38.0); CALCIUM 8.1 MG/DL (8.5-10.1); CHLORIDE 103 MMOL/L (99-107); CREATININE 0.99 MG/DL (0.40-0.90); GLUCOSE 96 MG/DL (70-104); MAGNESIUM 1.4 MG/DL (1.5-2.4); POTASSIUM 3.8 MMOL/L (3.5-5.1); SODIUM 137 MMOL/L (135-145); TOTAL CARBON DIOXIDE 27.8 MMOL/L (24-32); TOTAL PROTEIN 5.2 G/DL (6.4-8.2); eGFR 55 ML/MIN
[2017-08-09 06:59] VITALS: BP 116/64
[2017-08-09] MEDS: metroNIDAZOLE-Flagyl 500mg/NS 100 ML IV SCH ×3 (07:21→23:26)
[2017-08-09] MEDS: lactobacillus rhamnosus 10,000 MMU CELLS/CAPSULE PO SCH ×2 (07:22→20:18)
[2017-08-09] MEDS: magnesium Cl slow-release 64mg tablet PO PRN (07:22)
[2017-08-09] MEDS: aspirin 81mg tab.chew PO SCH (07:22)
[2017-08-09] MEDS: PARoxetine 20mg tablet PO SCH (07:22)
[2017-08-09] MEDS: amitriptyline 25mg tablet PO SCH (07:22)
[2017-08-09] MEDS: fluticasone nasal spray 16GM bottle NS SCH (07:23)
[2017-08-09] MEDS: mag hydrox/Alum hydrox/simeth 30ml oral suspension PO SCH ×3 (07:23→20:18)
[2017-08-09] MEDS: chloestyramine/aspartame 4gm packet PO SCH ×4 (07:23→20:18)
[2017-08-09] MEDS: OMEPRAZOLE 20MG CAPSULE PO SCH ×2 (07:24→20:19)
[2017-08-09] MEDS: heparin, porcine 5000 units/ml vial SQ SCH ×2 (07:24→20:20)
[2017-08-09] MEDS: K and/or MAG REPLACEMENT MC SCH (08:00)
[2017-08-09] MEDS: LACTOSE-FREE FOOD 237ML (BOOST) PO SCH ×3 (08:00→18:00)
[2017-08-09] MEDS: BUDESONIDE 0.25 MG/2 ML AMPUL.NEB IH SCH ×2 (08:16→19:47)
[2017-08-09] MEDS: albuterol 2.5 MG/3 ML nebule NEB PRN ×2 (08:16→16:39)
[2017-08-09 10:00] VITALS: BP 101/71
[2017-08-09 18:00] VITALS: BP 129/68
[2017-08-09] MEDS: traZODone 50mg tablet PO SCH (20:19)
[2017-08-09] MEDS: LOVASTATIN 20 MG PO SCH (20:19)
[2017-08-09 22:00] VITALS: BP 109/69
[2017-08-10] MEDS: vancomcyin 250mg capsules PO SCH ×2 (01:59→07:54)
[2017-08-10 05:24] LABS: BASOPHILS # (AUTO) 0.1 X10'3 (0-0.2); EOSINOPHILS # (AUTO) 0.1 X10'3 (0-0.9); EOSINOPHILS % (AUTO) 0.9 % (0-6); HEMATOCRIT 25.2 % (35.0-45.0); HEMOGLOBIN 8.3 g/dl (12.0-16.0); LYMPHOCYTES # (AUTO) 2.5 X10'3 (1.1-4.8); LYMPHOCYTES % (AUTO) 26.2 % (21-51); MEAN CORPUSCULAR HGB CONC 32.9 % (33.0-36.5); MEAN CORPUSCULAR VOLUME 88.2 FL (78-98); MEAN PLATELET VOLUME 6.1 FL (7.4-10.4); MONOCYTES # (AUTO) 0.8 X10'3 (0-0.9); MONOCYTES % (AUTO) 8.2 % (2-12); NEUTROPHILS # (AUTO) 6.1 X10'3 (1.8-7.7); NEUTROPHILS % (AUTO) 63.7 % (42-75); PLATELET COUNT 620 X10'3 (140-440); RED BLOOD COUNT 2.86 X10'6 (4.20-5.60); RED CELL DISTRIBUTION WIDTH 15.2 % (11.5-14.5); WHITE BLOOD COUNT 9.6 X10'3 (4.5-11.0)
[2017-08-10] MEDS: ondansetron/PF 4mg/2ml inj IV PRN (05:28)
[2017-08-10 05:53] LABS: ALANINE AMINOTRANSFERASE 10 U/L (12-78); ALBUMIN 2.1 G/DL (3.4-5.0); ALBUMIN/GLOBULIN RATIO 0.6 (1.1-1.5); ALKALINE PHOSPHATASE 59 IU/L (46-116); ANION GAP 5 (8-16); ASPARTATE AMINO TRANSFERASE 15 U/L (10-37); BILIRUBIN,TOTAL 0.2 MG/DL (0.1-1.0); BLOOD UREA NITROGEN 9 MG/DL (7-18); CALCIUM 8.1 MG/DL (8.5-10.1); CHLORIDE 101 MMOL/L (99-107); GLUCOSE 94 MG/DL (70-104); MAGNESIUM 1.7 MG/DL (1.5-2.4); POTASSIUM 4.1 MMOL/L (3.5-5.1); SODIUM 135 MMOL/L (135-145); TOTAL CARBON DIOXIDE 29.3 MMOL/L (24-32); TOTAL PROTEIN 5.6 G/DL (6.4-8.2); eGFR 61 ML/MIN
[2017-08-10 06:00] VITALS: BP 126/66
[2017-08-10] MEDS: PARoxetine 20mg tablet PO SCH (07:53)
[2017-08-10] MEDS: mag hydrox/Alum hydrox/simeth 30ml oral suspension PO SCH (07:53)
[2017-08-10] MEDS: metroNIDAZOLE-Flagyl 500mg/NS 100 ML IV SCH (07:53)
[2017-08-10] MEDS: amitriptyline 25mg tablet PO SCH (07:53)
[2017-08-10] MEDS: aspirin 81mg tab.chew PO SCH (07:53)
[2017-08-10] MEDS: lactobacillus rhamnosus 10,000 MMU CELLS/CAPSULE PO SCH (07:54)
[2017-08-10] MEDS: fluticasone nasal spray 16GM bottle NS SCH (07:55)
[2017-08-10] MEDS: K and/or MAG REPLACEMENT MC SCH (07:55)
[2017-08-10] MEDS: LACTOSE-FREE FOOD 237ML (BOOST) PO SCH (07:56)
[2017-08-10] MEDS: heparin, porcine 5000 units/ml vial SQ SCH (07:56)
[2017-08-10] MEDS: chloestyramine/aspartame 4gm packet PO SCH (07:57)
[2017-08-10] MEDS: OMEPRAZOLE 20MG CAPSULE PO SCH (08:06)
[2017-08-10] MEDS ORDERED: QUELT PO (08:18)
[2017-08-10] MEDS ORDERED: METR500T4 PO (08:18)
[2017-08-10] MEDS ORDERED: VANC250C4 PO (08:18)
[2017-08-10] MEDS: BUDESONIDE 0.25 MG/2 ML AMPUL.NEB IH SCH (08:30)
[2017-08-10 10:00] VITALS: BP 119/64
== END 2017-08-10 10:50 | disposition home health service (06) | DRG 371 ==
LOC: ER 11:11 → ED HOLD 13:06 → ORTHO 4S 15:00
PROVIDERS: ADMIT Internal Medicine; ATTEND Family Medicine
DX: A04.72 Enterocolitis due to Clostridium difficile, not specified as recurrent (principal); E43 Unspecified severe protein-calorie malnutrition; N17.0 Acute kidney failure with tubular necrosis; E87.1 Hypo-osmolality and hyponatremia; J44.9 Chronic obstructive pulmonary disease, unspecified; E86.0 Dehydration; I12.9 Hypertensive chronic kidney disease with stage 1 through stage 4 chronic kidney disease, or unspecified chronic kidney disease; K29.70 Gastritis, unspecified, without bleeding; N18.3 Chronic kidney disease, stage 3 (moderate); D64.9 Anemia, unspecified; E78.00 Pure hypercholesterolemia, unspecified; E78.5 Hyperlipidemia, unspecified; F32.9 Major depressive disorder, single episode, unspecified; F41.9 Anxiety disorder, unspecified; Z68.20 Body mass index [BMI] 20.0-20.9, adult; Z87.891 Personal history of nicotine dependence; Z88.1 Allergy status to other antibiotic agents; Z91.041 Radiographic dye allergy status; Z83.3 Family history of diabetes mellitus; Z82.49 Family history of ischemic heart disease and other diseases of the circulatory system
CPT/HCPCS: 36415; 71045; 80048; 80053; 81001; 83605; 83735; 84132; 84145; 85007; 85025; 87040; 87045; 87046; 87070; 87324; 87449; 89055; 93005; 94640; 94667; 94760; 96360; 97110; 97116; 97161; 97530; 99285; A6212; J1644; J2405; J3490; J7030

== ENCOUNTER 2019-09-16 14:03 | Emergency (ER) | payer MEDICARE, MEDICAID ==
[~2019-09-16] VITALS: Ht 152.4 cm; Wt 52.0 kg
[~2019-09-16 14:03] MED LIST changes: -AMIT-106 PO; +AMIT25TA9 PO; +ONDA-103; +QUELT PO; -TRAZ-143 PO; +TRAZ-251 PO; +VANC250C5 PO
[2019-09-16 14:11] VITALS: BP 138/63
[2019-09-16 15:48] LABS: BASOPHILS # (AUTO) 0.1 X10'3 (0-0.2); BASOPHILS % (AUTO) 1.4 % (0-1); EOSINOPHILS # (AUTO) 0.2 X10'3 (0-0.9); EOSINOPHILS % (AUTO) 2.2 % (0-6); HEMATOCRIT 36.2 % (35.0-45.0); HEMOGLOBIN 11.8 g/dl (12.0-16.0); LYMPHOCYTES # (AUTO) 2.3 X10'3 (1.1-4.8); LYMPHOCYTES % (AUTO) 25.2 % (21-51); MEAN CORPUSCULAR HEMOGLOBIN 29.8 PG (27.0-31.0); MEAN CORPUSCULAR HGB CONC 32.6 g/dL (33.0-36.5); MEAN CORPUSCULAR VOLUME 91.2 FL (78-98); MONOCYTES # (AUTO) 0.7 X10'3 (0-0.9); MONOCYTES % (AUTO) 7.3 % (2-12); NEUTROPHILS # (AUTO) 5.9 X10'3 (1.8-7.7); NEUTROPHILS % (AUTO) 63.9 % (42-75); PLATELET COUNT 487 X10'3 (140-440); RED BLOOD COUNT 3.97 X10'6 (4.20-5.60); RED CELL DISTRIBUTION WIDTH 13.1 % (11.5-14.5); WHITE BLOOD COUNT 9.3 X10'3 (4.5-11.0)
[2019-09-16 15:57] LABS: ALANINE AMINOTRANSFERASE 20 U/L (12-78); ALBUMIN 3.5 G/DL (3.4-5.0); ALBUMIN/GLOBULIN RATIO 0.9 (1.1-1.5); ALKALINE PHOSPHATASE 76 IU/L (46-116); ANION GAP 7 (8-16); ASPARTATE AMINO TRANSFERASE 18 U/L (10-37); BILIRUBIN,TOTAL 0.4 MG/DL (0.1-1.0); BLOOD UREA NITROGEN 12 MG/DL (7-18); CALCIUM 8.9 MG/DL (8.5-10.1); CHLORIDE 97 MMOL/L (99-107); CREATININE 1.09 MG/DL (0.40-0.90); GLUCOSE 95 MG/DL (70-104); POTASSIUM 4.5 MMOL/L (3.5-5.1); SODIUM 131 MMOL/L (135-145); TOTAL CARBON DIOXIDE 26.6 MMOL/L (24-32); TOTAL PROTEIN 7.5 G/DL (6.4-8.2); eGFR 49 ML/MIN
== END 2019-09-17 06:50 | disposition home or self-care (01) ==
LOC: ER 14:03
DX: E87.1 Hypo-osmolality and hyponatremia (principal); E78.00 Pure hypercholesterolemia, unspecified; I10 Essential (primary) hypertension; J45.909 Unspecified asthma, uncomplicated; Z98.890 Other specified postprocedural states; Z79.899 Other long term (current) drug therapy; Z79.82 Long term (current) use of aspirin; Z88.1 Allergy status to other antibiotic agents
CPT/HCPCS: 36415; 80053; 85025; 99284